=== PATIENT | male | born 1970 ===

== ENCOUNTER 2017-04-25 15:18 | Emergency (ER) | payer BC ==
[2017-04-25 15:22] VITALS: BMI 44.0
[2017-04-25 15:26] VITALS: TEMP 98.2
--- NOTE | 2017-04-25 15:44 | ED PDOC ---
Arrival/HPI - General Chief Complaint: Back Pain Time Seen by Provider: 04/25/17 15:26 Historian: Patient - History of Present Illness Narrative History of Present Illness (Text): 04/25/17 15:40 A 46 year old male, whose past medical history includes chronic back pain, presents to the emergency department complaining of right lower back pain for the past week. Patient notes radiating pain down his right leg. He reports his pain is exacerbated when standing for long periods of time. Patient was taking Flexeril, with no relief of symptoms. He currently denies any pain or discomfort. Patient denies any trauma, injury, fever, chills, nausea, vomiting, abdominal pain, urinary symptoms, chest pain, shortness of breath, cough, lower extremity weakness, numbness or tingling, headache, dizziness or any other complaints. Time/Duration: 1 week Symptom Course: Unchanged Quality: Other Context: Home Past Medical History - Provider Review Nursing Documentation Reviewed: Yes - Infectious Disease Hx of Infectious Diseases: None - Cardiac Hx Cardiac Disorders: Yes Hx Hypertension: Yes - Pulmonary Hx Respiratory Disorders: No - Neurological Hx Neurological Disorder: No - HEENT Hx HEENT Disorder: No - Renal Hx Renal Disorder: No - Endocrine/Metabolic Hx Endocrine Disorders: No - Hematological/Oncological Hx Blood Disorders: No - Integumentary Hx Dermatological Disorder: No - Musculoskeletal/Rheumatological Hx Musculoskeletal Disorders: No - Gastrointestinal Hx Gastrointestinal Disorders: No - Genitourinary/Gynecological Hx Genitourinary Disorders: No - Psychiatric Hx Psychophysiologic Disorder: No Hx Emotional Abuse: No Hx Physical Abuse: No Hx Substance Use: No - Surgical History Other/Comment: deviated septum SURGERY - Anesthesia Hx Anesthesia: Yes Hx Anesthesia Reactions: No Hx Malignant Hyperthermia: No - Suicidal Assessment Feels Threatened In Home Enviroment: No Family/Social History - Physician Review Nursing Documentation Reviewed: Yes Family/Social History: No Known Family HX Smoking Status: Never Smoked Hx Alcohol Use: No Hx Substance Use: No Hx Substance Use Treatment: No Allergies/Home Meds Allergies/Adverse Reactions: Allergies No Known Allergies Allergy (Verified 04/25/17 15:22) Home Medications: Home Meds Medication Instructions Recorded Confirmed Amlodipine/Valsartan/Hcthiazid 0 mg PO DAILY 04/25/17 04/25/17 [[id number] 10-160-12.5MG] Review of Systems - Physician Review All systems were reviewed & negative as marked: Yes - Review of Systems Constitutional: absent: Fevers, Night Sweats Respiratory: absent: SOB, Cough Cardiovascular: absent: Chest Pain Gastrointestinal: absent: Abdominal Pain, Nausea, Vomiting Genitourinary Male: absent: Dysuria, Frequency, Hematuria, Urinary Output Changes Musculoskeletal: Back Pain (right lower back pain radiating down right leg). absent: Other (lower extremity weakness, numbness or tingling) Neurological: absent: Headache, Dizziness Physical Exam Vital Signs Reviewed: Yes Vital Signs Temp Pulse Resp BP Pulse Ox 04/25/17 15:56 88 17 150/88 98 04/25/17 15:25 98.2 F 99 H 18 160/120 H 97 Temperature: Afebrile Blood Pressure: Hypertensive Pulse: Tachycardic Respiratory Rate: Normal Appearance: Positive for: Well-Appearing, Non-Toxic, Comfortable Pain Distress: None Mental Status: Positive for: Alert and Oriented X 3 - Systems Exam Head: Present: Atraumatic, Normocephalic Extroacular Muscles: Present: EOMI Conjunctiva: Present: Normal Mouth: Present: Moist Mucous Membranes Nose (Internal): Present: Normal Inspection Neck: Present: Normal Range of Motion. No: MIDLINE TENDERNESS, Paraspinal Tenderness Respiratory/Chest: Present: Clear to Auscultation, Good Air Exchange. No: Respiratory Distress, Accessory Muscle Use Cardiovascular: Present: Regular Rate and Rhythm, Normal S1, S2. No: Murmurs Abdomen: Present: Normal Bowel Sounds. No: Tenderness, Distention, Peritoneal Signs, Rebound, Guarding Back: Present: Normal Inspection. No: CVA Tenderness, Midline Tenderness, Paraspinal Tenderness, Pain with Leg Raise, Other (no tenderness to sciatica foramen) Upper Extremity: Present: Normal Inspection. No: Cyanosis, Edema Lower Extremity: Present: Normal Inspection. No: Edema, Tenderness Neurological: Present: GCS=15, Speech Normal, Motor Func Grossly Intact, Normal Sensory Function Skin: Present: Warm, Dry, Normal Color. No: Rashes Psychiatric: Present: Alert, Oriented x 3 Medical Decision Making ED Course and Treatment: 04/25/17 15:40 Impression: A 46 year old male with right lower back pain radiating down right leg x 1 week. pt with pain only when standing for long periods of time. Patient currently denies any pain or discomfort. pt was seen by PMD and given rx for ls xrays. Plan: -- LS spine xray: no fracture -- Reassess and disposition Progress Notes: 04/25/17 16:05 pt non toxic well appearing; no distress. stable vitals. pt states after walking to xray he developed pain in the right low back. no tenderness elicited on exam. Patient ambulating with steady gait. will give toradol for pain. I discussed x-ray findings with the patient. Advised to follow up with primary care physician as well as the orthopedist/back specialist within the next 2 days. Advised taking Motrin and Flexeril every 6 hours as needed for pain. I've advised immediate return if symptoms worsen or persist or if new concerning symptoms develop Patient verbalizes understanding of discharge instructions and need for immediate followup. Impression: Back pain Motrin every 6 hours as needed for pain Flexeril one tablet every 8 hours as needed for muscle spasms: May cause drowsiness Followup with the orthopedist within the next 2 days Followup with primary care physician within the next 2 days Return if symptoms worsen persist or if new symptoms develop - RAD Interpretation Radiology Orders: 04/25/17 15:52 LS SPINE WITH OBL > 18 YRS OLD [RAD] Stat - Scribe Statement The provider has reviewed the documentation as recorded by the Erin Hernandez Provider Scribe Attestation: All medical record entries made by the Scribe were at my direction and personally dictated by me. I have reviewed the chart and agree that the record accurately reflects my personal performance of the history, physical exam, medical decision making, and the department course for this patient. I have also personally directed, reviewed, and agree with the discharge instructions and disposition. Disposition/Present on Arrival - Present on Arrival Any Indicators Present on Arrival: No History of DVT/PE: No History of Uncontrolled Diabetes: No Urinary Catheter: No History of Decub. Ulcer: No History Surgical Site Infection Following: None - Disposition Have Diagnosis and Disposition been Completed?: Yes Diagnosis: Back pain Disposition: HOME/ ROUTINE Disposition Time: 16:07 Patient Plan: Discharge Patient Problems: Current Active Problems Problem Status Onset Back pain Acute Condition: GOOD Discharge Instructions (ExitCare): Acute Low Back Pain (ED) Additional Instructions: Motrin every 6 hours as needed for pain Flexeril one tablet every 8 hours as needed for muscle spasms: May cause drowsiness Followup with the orthopedist within the next 2 days Followup with primary care physician within the next 2 days Return if symptoms worsen persist or if new symptoms develop Prescriptions: Cyclobenzaprine [Cyclobenzaprine HCl] 10 mg PO Q8 #10 tab Ibuprofen [Motrin] 600 mg PO Q6H PRN #20 tab PRN Reason: pain/fever reduction Referrals: Iain Alvarez MD [Primary Care Provider] - Follow up with primary Liban Spaulding MD [Staff Provider] - Follow up with primary Emmett Calvillo MD [Staff Provider] - Follow up with primary Forms: [facility] (Guatemalan), WORK NOTE
[2017-04-25 15:56] VITALS: BP 150/88; PULSE 88; RESP 17; O2SAT 98
--- NOTE | 2017-04-25 17:29 | RAD ---
PROCEDURE: Radiographs of the Lumbar Spine. HISTORY: back pain COMPARISON: No prior. FINDINGS: BONES: No acute compression fractures nor retropulsed fragments. 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 There may be some minimal posterior subluxation L5 over S1. DISC SPACES: Minor multilevel degenerative spondylosis. Changes include varying degrees of mild posterior disc space narrowing with small marginal anterolateral osteophyte formation. Additionally, the facets are hypertrophic L5-S1 through the L2-L3 levels in somewhat decreasing order of severity. OTHER FINDINGS: None. IMPRESSION: No acute fractures. . 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 . Minor multilevel degenerative spondylosis as above.
== END 2017-04-25 17:07 | disposition home or self-care (01) ==
LOC: ED 15:18
DX: M54.9 Dorsalgia, unspecified (principal)
CPT/HCPCS: 72110; 96372; 99283; J1885